=== PATIENT | female | born 1990 | race Two or more races ===

== ENCOUNTER 2019-05-02 16:50 | Inpatient (IN) | payer OTHER ==
[~2019-05-02] VITALS: Ht 167.6 cm; Wt 92.5 kg
[2019-05-24] MEDS ORDERED: PRENATAL 19 TA1 EACH PO (13:57)
== END 2019-05-26 14:18 | disposition home or self-care (01) | DRG 798 ==
LOC: OB/GYN 05-24 06:19 → LDR 05-24 06:19 → OB/GYN 05-24 15:19
PROVIDERS: ADMIT Obstetrics & Gynecology
PROC: 10E0XZZ Delivery of Products of Conception, External Approach (ICD-10-PCS; principal; 2019-05-24)
PROC: 0KQM0ZZ Repair Perineum Muscle, Open Approach (ICD-10-PCS; 2019-05-24)
PROC: 4A1HXCZ Monitoring of Products of Conception, Cardiac Rate, External Approach (ICD-10-PCS; 2019-05-24)
PROC: 4A033R1 Measurement of Arterial Saturation, Peripheral, Percutaneous Approach (ICD-10-PCS; 2019-05-24)
PROC: 0UB70ZZ Excision of Bilateral Fallopian Tubes, Open Approach (ICD-10-PCS; 2019-05-25)
DX: O70.1 Second degree perineal laceration during delivery (principal); Z37.0 Single live birth; Z3A.38 38 weeks gestation of pregnancy; Z22.330 Carrier of Group B streptococcus; Z30.2 Encounter for sterilization